=== PATIENT | male | born 1995 | race Hispanic/Latino ===

== ENCOUNTER 2019-01-17 18:32 | Emergency (ER) | payer SELFPAY ==
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
== END 2019-01-17 20:41 | disposition home or self-care (01) ==
LOC: ER 18:32
DX: S40.011A Contusion of right shoulder, initial encounter (principal); V49.40XA Driver injured in collision with unspecified motor vehicles in traffic accident, initial encounter
CPT/HCPCS: 99284